=== PATIENT | male | born 1980 | race Caucasian/White ===

== ENCOUNTER 2020-07-05 13:11 | Emergency (ER) | payer SELFPAY ==
[~2020-07-05] VITALS: Ht 175.3 cm; Wt 120.5 kg
[~2020-07-05 13:11] MED LIST: ASPIRIN 81M81 MG/TA2 PO; HCTZ 25MG TAB25 MG PO; INDERAL 20MG20 MG PO; PRINIVIL40 MG PO; PROZAC 20MG20 MG PO; TOPROL XL 50MG50 MG PO
[2020-07-05 13:22] VITALS: TEMP 97.7
[2020-07-05 14:43] LABS: BASO # 0.1 (0.0-0.2); BASO % 0.9 % (0.0-2.0); EOS # 0.2 (0.0-0.7); EOS % 2.9 % (0-4.0); GRAN # 4.9 (1.4-6.5); GRAN % 63.4 % (42.2-75.2); HEMATOCRIT 49.5 % (42.0-52.0); HEMOGLOBIN 16.8 g/dl (13.5-18.0); LYMPH # 1.9 (1.2-3.4); LYMPH % 25.2 % (20.0-51.0); MEAN CELL VOLUME 89 fl (80.0-100.0); MEAN CORPUSCULAR HEMOGLOBIN 30 pg (27.0-31.0); MEAN CORPUSCULAR HGB CONC 34 g/dl (33.0-37.0); MEAN PLATELET VOLUME 10.9 fl (7.4-10.4); MONO # 0.6 (0.1-0.6); MONO % 7.3 % (1.7-9.3); PLATELET COUNT 236 K/mm3 (130-400); RED BLOOD COUNT 5.57 M/mm3 (4.20-5.60); REDCELL DISTRIBUTION WIDTH-CV 12.1 % (11.5-14.5)
[2020-07-05 14:46] LABS: INR 1.2 (0.8-3.0); PROTHROMBIN TIME 13.6 SECONDS (9.7-12.8)
[2020-07-05 14:49] LABS: PARTIAL THROMBOPLASTIN TIME 36.4 SECONDS (26.0-37.0)
[2020-07-05 14:52] LABS: ALANINE AMINOTRANSFERASE 37 U/L (4-49); ALBUMIN 4.6 gm/dL (3.5-5.0); ALKALINE PHOSPHATASE 74 U/L (50-136); ANION GAP 9 mmol/L (7-16); AST,SGOT 50 U/L (15-37); BILIRUBIN,TOTAL 0.7 mg/dL (0.0-1.0); BLOOD UREA NITROGEN 28 mg/dL (9-20); CALCIUM 9.7 mg/dL (8.4-10.2); CARBON DIOXIDE 26 mmol/L (22-30); CHLORIDE 104 mmol/L (98-107); CREATININE, serum 1.45 (0.66-1.25); GLUCOSE 94 mg/dL (74-106); LIPASE 298 U/L (23-300); POTASSIUM 4.3 mmol/L (3.4-5.0); SODIUM 139 mmol/L (137-145); TOTAL PROTEIN 7.8 gm/dL (6.4-8.2)
[2020-07-05 15:07] LABS: TROPONIN-I < 0.012 ng/mL (0.000-0.035)
[2020-07-05] MEDS ORDERED: METOPROLOL TA37.5 MG PO (16:10)
[2020-07-05 16:19] VITALS: BP 108/58; PULSE 64
== END 2020-07-05 16:18 | disposition home or self-care (01) ==
LOC: COL.ER 13:11
PROVIDERS: Emergency Medicine
DX: R07.9 Chest pain, unspecified (principal); R42 Dizziness and giddiness; I10 Essential (primary) hypertension; E66.9 Obesity, unspecified; I48.0 Paroxysmal atrial fibrillation; Z79.82 Long term (current) use of aspirin; Z68.39 Body mass index [BMI] 39.0-39.9, adult
CPT/HCPCS: J7030